=== PATIENT | male | born 1970 | race Caucasian/White ===

== ENCOUNTER 2023-10-16 06:11 | Day surgery (SDC) | payer OTHER, SELFPAY ==
[2023-10-03 07:05] VITALS: BMI 27.6
[2023-10-03 09:08] LABS: Hematocrit 42.4 % (39.0-52.0); Mean Corp Hgb Conc. 35.4 g/dL (33.0-37.0); Mean Corpuscular Hgb 31.4 pg (27.0-31.0); Mean Corpuscular Volume 88.9 fL (80.0-94.0); Mean Platelet Volume 10.3 fL (7.4-10.4); Platelet Count 224 10^3/uL (130-400); Red Blood Cell Count 4.77 10^6/uL (4.70-6.10); Red Cell Dist. Width 12.8 % (11.5-14.5); White Blood Cell Count 6.3 10^3/uL (4.8-10.8)
[2023-10-03 09:36] LABS: INR 1.04; PT 13.7 Sec (11.4-14.6)
[2023-10-03 09:37] LABS: APTT 33.5 Sec (23.4-35.0)
[2023-10-03 09:56] LABS: ALT (SGPT) 26 U/L (0-50); AST (SGOT) 33 U/L (17-59); Albumin 4.7 g/dl (3.5-5.0); Alkaline Phosphatase 94 U/L (38-126); Blood Urea Nitrogen 23 mg/dl (9-20); Calcium 9.9 mg/dl (8.4-10.2); Carbon Dioxide 24 mmol/L (22-30); Chloride 102 mmol/L (98-107); Estimated Creatinine Clearance 92 ml/min; Glucose 76 mg/dl (70-99); Potassium 4.3 mmol/L (3.5-5.1); Sodium 138 mmol/L (135-145); Total Bilirubin 1.1 mg/dl (0.2-1.3); Total Protein 7.5 g/dl (6.3-8.2); eGFR > 60.00
--- NOTE | 2023-10-03 13:25 | PTCARENOTE ---
Abnormal EKG ok per Dr. Arnold.
[2023-10-16] VITALS (9 sets, daily range): BP systolic 102–129; BP diastolic 64–85; BMI 27.5
[2023-10-16] MEDS: HEPARIN 5000 UNITS SC (06:32)
[2023-10-16] MEDS: TYLENOL 1000 MG PO (06:33)
[2023-10-16] MEDS: NEURONTIN 300 MG PO (06:35)
[2023-10-16] MEDS: NORMOSOL-R 1000 IV (06:41)
--- NOTE | 2023-10-16 09:15 | OR.RPT ---
Operative Report
Operative Report
PREOPERATIVE DIAGNOSIS: �Thyroid Hyperthyroidism w/o crisis - E0500
POSTOPERATIVE DIAGNOSIS: Same
SURGEON: Myron Whitfield M.D.
OPERATION: �Total Thyroidectomy - 18305
ANESTHESIA: GET
ESTIMATED BLOOD LOSS: 3 cc
DRAINS: None
SPECIMEN: �total thyroid
FINDINGS: Multinodular thyroid
COMPLICATIONS:�None
PROCEDURE:
The patient was taken to the operating room and placed in the usual supine position. After adequate general endotracheal anesthesia was established, the patient�s neck was extended, prepped, and draped in the typical sterile fashion. A 4 cm
transcervical incision was made two fingerbreadths above the sternal notch. The skin incision was made with the #15 blade, which was taken through the skin into the subcutaneous tissue. The underlying platysma muscle was divided, and subplatysmal
flaps were created superiorly to the thyroid cartilage and inferiorly to the sternal notch. Strap muscles were identified and at the midline.
Attention was turned to the patient�s right thyroid lobe. The right thyroid lobe was mobilized medially. During this process, the right middle thyroid vein and inferior thyroid artery were dissected and ligated with Ligasure. Next, the right
superior pole was taken down by dissecting and transecting the superior pole vessels with a Ligasure. The right thyroid lobe was mobilized medially. During this process, the right recurrent laryngeal nerve was identified and preserved throughout its
entire course. The right superior and inferior parathyroid glands were identified and preserved. The right thyroid lobe with isthmus was resected off the trachea and sent to the pathology department.
Attention was turned to the patient�s left thyroid lobe. The left thyroid lobe was mobilized medially. During this process, the left middle thyroid vein and inferior thyroid artery were dissected and ligated with Ligasure. Next, the left superior
pole was taken down by dissecting and transecting the superior pole vessels with a Ligasure. The left thyroid lobe was mobilized medially. During this process, the left recurrent laryngeal nerve was identified and preserved throughout its entire
course. The left superior parathyroid gland was identified and preserved. The left thyroid lobe with isthmus was resected off the trachea and sent to the pathology department.
After obtaining adequate hemostasis, the strap muscle was approximated with #3-0 Vicryl in a running fashion, and platysma muscles were reapproximated with #3-0 Vicryl in an interrupted fashion, and the skin was approximated with #4-0 Monocryl in a
running subcuticular fashion. Steri-strips and sterile dressings were placed. The patient tolerated the procedure well. The final instrument, needle, and sponge counts were correct.
[2023-10-16] MEDS: DILAUDID 0.25 MG IV (09:38)
== END 2023-10-16 11:19 | disposition home or self-care (01) ==
LOC: SDS 06:11
PROVIDERS: ATTENDING PHYSICIAN Surgery; FAMILY PHYSICIAN Family Medicine; OTHER PHYSICIAN Internal Medicine Endocrinology, Diabetes & Metabolism
DX: E06.3 Autoimmune thyroiditis (principal); E05.00 Thyrotoxicosis with diffuse goiter without thyrotoxic crisis or storm
CPT/HCPCS: 60240; 88307; 36415; 80053; 85027; 85610; 85730; 93005

== ENCOUNTER → 2025-04-21 08:25 | Outpatient (REF) | payer OTHER, SELFPAY | LOC: RST 08:25 | PROVIDERS: ATTENDING PHYSICIAN Family Medicine | DX: R13.19 Other dysphagia (principal) | CPT/HCPCS: 74230; 92611 ==